=== PATIENT | male | born 2000 | race Caucasian/White ===

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

== ENCOUNTER 2020-09-21 13:50 | Emergency (ER) | payer MEDICAID ==
[~2020-09-21] VITALS: Ht 193 cm; Wt 56.7 kg
[~2020-09-21 13:50] MED LIST changes: -cefazolin/dext.iso 2gm/50ml 50 ML IV ONE; -famotidine 20mg tablet PO ONE; -ringers solution, lacted 1,000 ML IV SCH
[2020-09-21 14:18] VITALS: BP 141/83
[2020-09-21] MEDS ORDERED: LIDOcaine 5% patch TP STA (15:19)
[2020-09-21] MEDS ORDERED: CYCL5TAB PO (15:24)
== END 2020-09-21 16:06 | disposition home or self-care (01) ==
LOC: ER 13:51
DX: S16.1XXA Strain of muscle, fascia and tendon at neck level, initial encounter (principal); M54.2 Cervicalgia; M62.838 Other muscle spasm; Z79.899 Other long term (current) drug therapy; X58.XXXA Exposure to other specified factors, initial encounter; Y93.89 Activity, other specified; Y92.89 Other specified places as the place of occurrence of the external cause; Y99.8 Other external cause status
CPT/HCPCS: 99283